=== PATIENT | male | born 1985 | race African-American/Black ===

== ENCOUNTER 2018-01-07 14:10 | Emergency (ER) | payer OTHER ==
[~2018-01-07] VITALS: Ht 177.8 cm; Wt 82.1 kg
[~2018-01-07 14:10] MED LIST: AMOXICILLIN875 MG PO; MOTRIN800 MG PO; ULTRAM50 MG PO
[2018-01-07 15:33] VITALS: BP 130/89
[2018-01-07] MEDS ORDERED: PEN-VEE K,VEET500 MG PO (15:45)
[2018-01-07] MEDS ORDERED: NORCO 5/3251 TABLET PO (15:45)
== END 2018-01-07 16:29 | disposition home or self-care (01) ==
LOC: EME 14:10
DX: K08.89 Other specified disorders of teeth and supporting structures (principal); K04.7 Periapical abscess without sinus; K03.81 Cracked tooth; H92.01 Otalgia, right ear; M54.2 Cervicalgia; F17.200 Nicotine dependence, unspecified, uncomplicated
CPT/HCPCS: 99281; 99285